=== PATIENT | male | born 1955 | race Caucasian/White ===

== ENCOUNTER 2017-02-25 22:06 | Emergency (ER) | payer MEDICARE, MEDICAID ==
[~2017-02-25] VITALS: Ht 198.1 cm; Wt 80.0 kg
[~2017-02-25 22:06] MED LIST: HYDR-519 PO
[2017-02-25 23:03] VITALS: BP 129/84
[2017-02-26] MEDS ORDERED: KETOROLAC 60MG/2ML VIAL IM ONE (00:45)
== END 2017-02-26 01:45 | disposition left against medical advice (07) ==
LOC: ER 22:06
DX: S52.022D Displaced fracture of olecranon process without intraarticular extension of left ulna, subsequent encounter for closed fracture with routine healing (principal); Y08.89XD Assault by other specified means, subsequent encounter; R03.0 Elevated blood-pressure reading, without diagnosis of hypertension; Z98.890 Other specified postprocedural states; Z96.659 Presence of unspecified artificial knee joint
CPT/HCPCS: 73070; 73110; 96372; 99284; J1885

== ENCOUNTER 2017-09-27 00:36 | Emergency (ER) | payer MEDICARE, MEDICAID ==
[~2017-09-27] VITALS: Ht 188 cm; Wt 73.0 kg
[2017-09-27] MEDS ORDERED: HYDROCODONE/ACETAMINOPHEN 5/325MG TABLET PO ONE (03:15)
[2017-09-27 06:00] VITALS: BP 137/81
== END 2017-09-27 07:11 | disposition home or self-care (01) ==
LOC: ER 00:36
DX: M25.562 Pain in left knee (principal); M54.9 Dorsalgia, unspecified; Z95.0 Presence of cardiac pacemaker
CPT/HCPCS: 72070; 72100; 73562; 99284

== ENCOUNTER 2017-10-08 19:12 | Emergency (ER) | payer MEDICARE, MEDICAID | END 2017-10-08 20:20 | disposition left against medical advice (07) | LOC: ER 19:12 | DX: M25.569 Pain in unspecified knee (principal); Z53.21 Procedure and treatment not carried out due to patient leaving prior to being seen by health care provider ==

== ENCOUNTER 2017-10-19 23:51 | Emergency (ER) | payer MEDICAID, MEDICARE ==
[~2017-10-19] VITALS: Ht 198.1 cm; Wt 90.0 kg
[2017-10-20] MEDS ORDERED: HYDROCODONE/ACETAMINOPHEN 5/325MG TABLET PO STA (01:02)
[2017-10-20] MEDS ORDERED: NITROGLYCERIN OINT 1GM/INCH UDPKT TD ONE (01:15)
[2017-10-20 01:17] VITALS: BP 126/74
[2017-10-20 01:21] LABS: BASOPHILS % 0.6 % (0.0-2.0); HEMATOCRIT. 34.3 % (42.0-52.0); HEMOGLOBIN. 11.5 g/dL (14.0-18.0); LYMPHOCYTES % 34.9 % (20.0-50.0); MEAN CORPUSCULAR HEMOGLOBIN 29.3 pg (28.0-32.0); MEAN CORPUSCULAR VOLUME 87.5 fL (80.0-94.0); MEAN PLATELET VOLUME 8.1 fl (7.4-10.4); NEUTROPHILS % 49.5 % (40.0-76.0); PLATELET 220 x1000/uL (130-400); RED BLOOD CELL COUNT 3.92 mill/uL (4.7-6.1); RED CELL DISTRIBUTION WIDTH 15.5 % (11.6-14.6)
[2017-10-20 01:35] LABS: CHLORIDE 111 mEq/L (98-107); TROPONIN I < 0.02 ng/mL (0.00-0.04)
== END 2017-10-20 03:11 | disposition home or self-care (01) ==
LOC: ER 23:51 → CANBEDREQ 10-20 03:43
DX: R07.9 Chest pain, unspecified (principal); G89.29 Other chronic pain; F17.200 Nicotine dependence, unspecified, uncomplicated; Z95.0 Presence of cardiac pacemaker; Z96.659 Presence of unspecified artificial knee joint
CPT/HCPCS: 36415; 71045; 80053; 83880; 84484; 85025; 85379; 93005; 99285

== ENCOUNTER 2017-11-07 15:41 | Emergency (ER) | payer MEDICARE ==
[~2017-11-07] VITALS: Ht 185.4 cm; Wt 70.0 kg
[2017-11-07 15:49] VITALS: BP 98/62
== END 2017-11-07 18:45 | disposition left against medical advice (07) ==
LOC: ER 15:55
DX: R07.9 Chest pain, unspecified (principal); Z53.21 Procedure and treatment not carried out due to patient leaving prior to being seen by health care provider

== ENCOUNTER 2018-12-21 21:39 | Emergency (ER) | payer MEDICARE, OTHER ==
[~2018-12-21] VITALS: Ht 190.5 cm; Wt 100.0 kg
[2018-12-21] MEDS ORDERED: ACETAMINOPHEN 325MG TABLET PO ONE (23:30)
[2018-12-21] MEDS ORDERED: NITROGLYCERIN OINT 1GM/INCH UDPKT TD ONE (23:30)
[2018-12-21 23:45] LABS: BASOPHILS % 0.8 % (0.0-2.0); EOSINOPHILS % 4.2 % (0.0-5.0); HEMATOCRIT. 37.1 % (42.0-52.0); HEMOGLOBIN. 12.6 g/dL (14.0-18.0); LYMPHOCYTES % 32.7 % (20.0-50.0); MEAN CORPUSCULAR HEMOGLOBIN 30.6 pg (28.0-32.0); MEAN CORPUSCULAR VOLUME 90.4 fL (80.0-94.0); MEAN PLATELET VOLUME 9.7 fl (7.4-10.4); MONOCYTES % 11.1 % (2.0-8.0); NEUTROPHILS % 51.2 % (40.0-76.0); PLATELET 226 x1000/uL (130-400); RED CELL DISTRIBUTION WIDTH 12.5 % (11.6-14.6)
[2018-12-21 23:53] LABS: CHLORIDE 111 mEq/L (98-107)
[2018-12-22 04:50] VITALS: BP 121/89
== END 2018-12-22 05:00 | disposition home or self-care (01) ==
LOC: ER 21:39
DX: R07.9 Chest pain, unspecified (principal)
CPT/HCPCS: 36415; 71045; 83880; 84484; 85379; 93005; 99284

== ENCOUNTER 2019-08-19 10:14 | Inpatient (IN) | payer MEDICARE, OTHER ==
[~2019-08-19] VITALS: Ht 198.1 cm; Wt 84.4 kg
[2019-08-19] MEDS ORDERED: MORPHINE SULFATE 4 MG/ML CPJ (NOT FOR IM USE) IV STA (10:53)
[2019-08-19] MEDS ORDERED: SODIUM CHLORIDE 0.9% 1,000 ML IV ONE (10:53)
[2019-08-19] MEDS ORDERED: ONDANSETRON HCL 4MG/2ML INJ IV STA (10:53)
[2019-08-19] MEDS ORDERED: NITROGLYCERIN 0.4MG TABLET SL SL PRN ×2 (11:00→15:30)
[2019-08-19 11:12] LABS: EOSINOPHILS % 6.6 % (0.0-5.0); HEMATOCRIT. 36.8 % (42.0-52.0); HEMOGLOBIN. 12.5 g/dL (14.0-18.0); LYMPHOCYTES % 30.2 % (20.0-50.0); MEAN CORPUSCULAR HEMOGLOBIN 30.7 pg (28.0-32.0); MEAN CORPUSCULAR VOLUME 90.2 fL (80.0-94.0); MEAN PLATELET VOLUME 8.4 fl (7.4-10.4); MONOCYTES % 8.4 % (2.0-8.0); NEUTROPHILS % 53.8 % (40.0-76.0); PLATELET 184 x1000/uL (130-400); RED BLOOD CELL COUNT 4.08 mill/uL (4.7-6.1); RED CELL DISTRIBUTION WIDTH 14.3 % (11.6-14.6)
[2019-08-19 11:18] LABS: CHLORIDE 109 mEq/L (98-107)
[2019-08-19 11:24] LABS: D-DIMER 0.52 mg/L FEU (<0.50); INR 1.1; PARTIAL THROMBOPLASTIN TIME 26.7 sec (23.4-31.0); PROTHROMBIN TIME 10.9 sec (9.6-11.0)
[2019-08-19] MEDS ORDERED: SODIUM CHLORIDE 0.9% 1000ML BAG (SEPSIS BOLUS) IV ONE (13:00)
[2019-08-19] MEDS ORDERED: LEVOFLOXACIN 750MG PREMIX 150 ML IV ONE (13:00)
[2019-08-19 13:11] LABS: CLARITY URINE CLEAR (CLEAR); COLOR URINE YELLOW (YELLOW); KETONES URINE NEGATIVE (NEGATIVE); LEUKOCYTE ESTERASE URINE NEGATIVE (NEGATIVE); NITRITE URINE NEGATIVE (NEGATIVE); OCCULT BLOOD URINE NEGATIVE (NEGATIVE); PH URINE 5.5 (4.5-8.0); PROTEIN URINE NEGATIVE (NEGATIVE); SPECIFIC GRAVITY URINE 1.013 (1.005-1.030); UROBILINOGEN URINE 0.2 E.U./dL (0.2-1.0)
[2019-08-19 13:39] LABS: *BARBITURATES SCREEN URINE NEGATIVE (NEGATIVE)
[2019-08-19 13:40] LABS: *BENZODIAZEPINES SCREEN URINE NEGATIVE (NEGATIVE); *COCAINE SCREEN URINE NEGATIVE (NEGATIVE); CANNABINOID URINE SCREEN NEGATIVE (NEGATIVE); METHADONE URINE SCREEN NEGATIVE (NEGATIVE); OPIATES URINE SCREEN PRESUMTIVE POSITIVE (NEGATIVE); PHENCYCLIDINE URINE SCREEN NEGATIVE (NEGATIVE)
[2019-08-19 13:41] LABS: *AMPHETAMINES SCREEN URINE NEGATIVE (NEGATIVE)
[2019-08-19] MEDS ORDERED: IOHEXOL-350 100 ML BOTTLE ONE (14:22)
[2019-08-19] MEDS ORDERED: ACETAMINOPHEN 325MG TABLET PO PRN (15:30)
[2019-08-19] MEDS ORDERED: GUAIFENESIN 200MG/10ML SUGAR FREE UDC PO PRN (15:30)
[2019-08-19] MEDS ORDERED: MAGNESIUM/ALUMINUM HYDROXIDE/SIMETHICONE 30ML UDC PO PRN (15:30)
[2019-08-19] MEDS ORDERED: ONDANSETRON HCL 4MG/2ML INJ IV PRN (15:30)
[2019-08-19] MEDS ORDERED: CLONIDINE 0.1MG TABLET PO PRN (15:30)
[2019-08-19] MEDS ORDERED: DOCUSATE SODIUM 100MG CAPSULE PO PRN (15:30)
[2019-08-19] MEDS ORDERED: IPRATROPIUM/ALBUTEROL 0.5-3(2.5)MG/3ML NEB NEB PRN (15:30)
[2019-08-19 16:00] VITALS: BP 134/86
[2019-08-19 16:35] VITALS: BP 134/86
[2019-08-19] MEDS ORDERED: BACL-141 PO (16:35)
[2019-08-19] MEDS: HYDROCODONE/ACETAMINOPHEN 5/325MG TABLET PO PRN (17:01)
[2019-08-19] MEDS: ENOXAPARIN 40MG/0.4ML SYR SUBCUT SCH (17:56)
[2019-08-19 20:00] VITALS: BP 116/60
[2019-08-19] MEDS: MORPHINE SULFATE 2 MG/ML CPJ (NOT FOR IM USE) IV PRN (20:35)
[2019-08-20] VITALS: BP 120/65
[2019-08-20 00:05] LABS: CREATINE KINASE 62 IU/L (39-308)
[2019-08-20 00:06] LABS: CREATINE KINASE MB FRACTION 2.3 ng/mL (0.5-3.6)
[2019-08-20] MEDS: MORPHINE SULFATE 2 MG/ML CPJ (NOT FOR IM USE) IV PRN ×4 (01:35→20:19)
[2019-08-20 04:00] VITALS: BP 123/79
[2019-08-20] MEDS: HYDROCODONE/ACETAMINOPHEN 5/325MG TABLET PO PRN ×3 (04:48→15:53)
[2019-08-20 06:01] LABS: BASOPHILS % 0.9 % (0.0-2.0); HEMATOCRIT. 37.4 % (42.0-52.0); HEMOGLOBIN. 12.8 g/dL (14.0-18.0); LYMPHOCYTES % 27.5 % (20.0-50.0); MEAN CORPUSCULAR HEMOGLOBIN 30.8 pg (28.0-32.0); MEAN CORPUSCULAR VOLUME 90.4 fL (80.0-94.0); NEUTROPHILS % 54.6 % (40.0-76.0); PLATELET 174 x1000/uL (130-400); RED BLOOD CELL COUNT 4.14 mill/uL (4.7-6.1); RED CELL DISTRIBUTION WIDTH 14.2 % (11.6-14.6)
[2019-08-20 06:09] LABS: CHLORIDE 110 mEq/L (98-107)
[2019-08-20 06:18] LABS: HDL CHOLESTEROL 45 mg/dL (40-59); LDL CHOLESTEROL 65 mg/dL (5-100)
[2019-08-20 06:21] LABS: CREATINE KINASE 57 IU/L (39-308)
[2019-08-20 06:24] LABS: CREATINE KINASE MB FRACTION 1.6 ng/mL (0.5-3.6)
[2019-08-20] MEDS ORDERED: REGADENOSON 0.4 MG/5 ML IV ONE ×2 (06:30→09:05)
[2019-08-20 08:00] VITALS: BP 115/81
[2019-08-20] MEDS ORDERED: INFLUENZA VIRUS VACCINE(AFLURIA) 0.5ML SYR IM ONE (08:00)
[2019-08-20] MEDS ORDERED: PNEUMOCOCCAL 23-VAL P-SAC VAC 0.5 ML IM ONE (08:00)
[2019-08-20] MEDS: AMLODIPINE 10MG TABLET PO SCH (10:13)
[2019-08-20] MEDS: ASPIRIN 81MG EC TABLET PO SCH (10:13)
[2019-08-20 12:00] VITALS: BP 114/79
[2019-08-20] MEDS ORDERED: LEVOFLOXACIN 500MG PREMIX 100 ML IV SCH (13:00)
[2019-08-20 16:00] VITALS: BP 127/61
[2019-08-20] MEDS: ENOXAPARIN 40MG/0.4ML SYR SUBCUT SCH (16:59)
[2019-08-20 20:00] VITALS: BP 121/64
[2019-08-21] VITALS: BP 115/65
[2019-08-21] MEDS: MORPHINE SULFATE 2 MG/ML CPJ (NOT FOR IM USE) IV PRN ×5 (00:41→22:46)
[2019-08-21] MEDS: HYDROCODONE/ACETAMINOPHEN 5/325MG TABLET PO PRN ×3 (03:38→20:15)
[2019-08-21 04:00] VITALS: BP 131/70
[2019-08-21 06:35] LABS: BASOPHILS % 0.9 % (0.0-2.0); EOSINOPHILS % 7.2 % (0.0-5.0); HEMOGLOBIN. 13.4 g/dL (14.0-18.0); LYMPHOCYTES % 30.5 % (20.0-50.0); MEAN CORPUSCULAR VOLUME 90.2 fL (80.0-94.0); MEAN PLATELET VOLUME 9.5 fl (7.4-10.4); NEUTROPHILS % 51.4 % (40.0-76.0); PLATELET 185 x1000/uL (130-400); RED BLOOD CELL COUNT 4.32 mill/uL (4.7-6.1); RED CELL DISTRIBUTION WIDTH 14.5 % (11.6-14.6)
[2019-08-21 06:55] LABS: CHLORIDE 107 mEq/L (98-107)
[2019-08-21 08:00] VITALS: BP 110/76
[2019-08-21] MEDS: AMLODIPINE 10MG TABLET PO SCH (08:10)
[2019-08-21] MEDS: ASPIRIN 81MG EC TABLET PO SCH (08:10)
[2019-08-21 12:00] VITALS: BP 108/74
[2019-08-21] MEDS ORDERED: LEVOFLOXACIN 500MG PREMIX 100 ML IV SCH (15:00)
[2019-08-21 16:00] VITALS: BP 91/52
[2019-08-21] MEDS: LEVOFLOXACIN 500MG PREMIX 100 ML IV SCH (17:24)
[2019-08-21] MEDS: ENOXAPARIN 40MG/0.4ML SYR SUBCUT SCH (17:24)
[2019-08-21 20:00] VITALS: BP 114/72
[2019-08-22] VITALS (7 sets, daily range): BP systolic 96–130; BP diastolic 52–77
[2019-08-22] MEDS: HYDROCODONE/ACETAMINOPHEN 5/325MG TABLET PO PRN (02:39)
[2019-08-22] MEDS: MORPHINE SULFATE 2 MG/ML CPJ (NOT FOR IM USE) IV PRN (03:43)
[2019-08-22] MEDS: ASPIRIN 81MG EC TABLET PO SCH (08:08)
[2019-08-22] MEDS: AMLODIPINE 10MG TABLET PO SCH (08:08)
[2019-08-22] MEDS: HYDROCODONE/ACETAMINOPHEN 10/325MG TABLET PO PRN ×2 (10:10→18:41)
[2019-08-22] MEDS: LEVOFLOXACIN 500MG PREMIX 100 ML IV SCH (14:37)
[2019-08-22] MEDS: ENOXAPARIN 40MG/0.4ML SYR SUBCUT SCH (17:18)
[2019-08-23] VITALS: BP 104/55
[2019-08-23] MEDS: HYDROCODONE/ACETAMINOPHEN 10/325MG TABLET PO PRN ×4 (01:14→22:45)
[2019-08-23 04:00] VITALS: BP 106/63
[2019-08-23 08:00] VITALS: BP 132/70
[2019-08-23] MEDS: AMLODIPINE 10MG TABLET PO SCH (10:45)
[2019-08-23] MEDS: ASPIRIN 81MG EC TABLET PO SCH (10:46)
[2019-08-23 12:00] VITALS: BP 114/69
[2019-08-23 16:00] VITALS: BP 116/57
[2019-08-23] MEDS: LEVOFLOXACIN 500MG PREMIX 100 ML IV SCH (16:10)
[2019-08-23] MEDS: ENOXAPARIN 40MG/0.4ML SYR SUBCUT SCH (18:31)
[2019-08-24 00:54] VITALS: BP 128/69
[2019-08-24] MEDS ORDERED: LEVOFLOXACIN 500MG TABLET PO SCH (11:00)
== END 2019-08-24 00:54 | DRG 205 ==
LOC: ER 10:14 → 7WST 13:37 → EDBEDREQTM 14:08 → EDBEDREQ 14:08 → ENRESERV 14:23 → 7WST 08-23 08:59
PROVIDERS: ADMIT Hospitalist; ATTEND Hospitalist
DX: M94.0 Chondrocostal junction syndrome [Tietze] (principal); J18.9 Pneumonia, unspecified organism; J96.00 Acute respiratory failure, unspecified whether with hypoxia or hypercapnia; J44.0 Chronic obstructive pulmonary disease with (acute) lower respiratory infection; C34.90 Malignant neoplasm of unspecified part of unspecified bronchus or lung; I50.30 Unspecified diastolic (congestive) heart failure; E44.1 Mild protein-calorie malnutrition; D63.8 Anemia in other chronic diseases classified elsewhere; E78.5 Hyperlipidemia, unspecified; F17.210 Nicotine dependence, cigarettes, uncomplicated; I25.10 Atherosclerotic heart disease of native coronary artery without angina pectoris; I49.5 Sick sinus syndrome; Z96.659 Presence of unspecified artificial knee joint; G89.29 Other chronic pain; F60.0 Paranoid personality disorder; Z60.2 Problems related to living alone; R07.89 Other chest pain; I11.0 Hypertensive heart disease with heart failure; I25.2 Old myocardial infarction; Z85.118 Personal history of other malignant neoplasm of bronchus and lung; Z95.0 Presence of cardiac pacemaker; Z82.49 Family history of ischemic heart disease and other diseases of the circulatory system; Z87.01 Personal history of pneumonia (recurrent); Z82.3 Family history of stroke; Z79.899 Other long term (current) drug therapy
CPT/HCPCS: 36415; 71045; 71275; 78452; 80048; 80061; 80305; 81003; 82550; 82553; 83605; 83880; 84484; 85379; 86850; 86900; 90686; 90732; 93005; 93017; 93306; 93970; 96365; 99285; A9500; J1650; J1956; J2270; J2405; J2785; J7030; Q9967

== ENCOUNTER 2019-10-20 10:36 | Emergency (ER) | payer MEDICARE, MEDICAID ==
[~2019-10-20] VITALS: Ht 198.1 cm; Wt 100.0 kg
[~2019-10-20 10:36] MED LIST changes: +BACL-141 PO
[2019-10-20] MEDS ORDERED: LIDOCAINE HCL/PF 1% 10 MG/ML 5ML VIAL IJ ONE (11:00)
[2019-10-20] MEDS ORDERED: TETANUS, DIPHTHERIA, PERTUSSIS VAC/PF 0.5ML (>7YR OLD) IM ONE (11:00)
[2019-10-20 11:28] LABS: BASOPHILS % 0.8 % (0.0-2.0); EOSINOPHILS % 2.4 % (0.0-5.0); HEMATOCRIT. 45.7 % (42.0-52.0); HEMOGLOBIN. 15.9 g/dL (14.0-18.0); LYMPHOCYTES % 33.9 % (20.0-50.0); MEAN CORPUSCULAR HEMOGLOBIN 31.3 pg (28.0-32.0); MEAN CORPUSCULAR VOLUME 90.1 fL (80.0-94.0); MEAN PLATELET VOLUME 8.4 fl (7.4-10.4); MONOCYTES % 7.9 % (2.0-8.0); PLATELET 182 x1000/uL (130-400); RED BLOOD CELL COUNT 5.07 mill/uL (4.7-6.1); RED CELL DISTRIBUTION WIDTH 13.4 % (11.6-14.6)
[2019-10-20 11:35] LABS: CHLORIDE 109 mEq/L (98-107)
[2019-10-20] MEDS ORDERED: OXYCODONE HCL/ACETAMINOPHEN 5/325MG TABLET PO ONE (12:15)
[2019-10-20 12:51] VITALS: BP 123/71
== END 2019-10-20 13:22 | disposition home or self-care (01) ==
LOC: ER 10:36
DX: S09.8XXA Other specified injuries of head, initial encounter (principal); S01.112A Laceration without foreign body of left eyelid and periocular area, initial encounter; S60.511A Abrasion of right hand, initial encounter; I25.10 Atherosclerotic heart disease of native coronary artery without angina pectoris; I25.2 Old myocardial infarction; Z85.9 Personal history of malignant neoplasm, unspecified; Z95.0 Presence of cardiac pacemaker; Y04.0XXA Assault by unarmed brawl or fight, initial encounter; Y93.89 Activity, other specified; Y92.89 Other specified places as the place of occurrence of the external cause
CPT/HCPCS: 12011; 36415; 70450; 70486; 71045; 80053; 83880; 84484; 85025; 90471; 90715; 93005; 99284; J3490

== ENCOUNTER 2020-08-18 18:24 | Emergency (ER) | payer MEDICARE, OTHER ==
[~2020-08-18] VITALS: Ht 182.9 cm; Wt 86.0 kg
[2020-08-18 18:34] VITALS: BP 147/86
== END 2020-08-18 19:18 | disposition left against medical advice (07) ==
LOC: ER 18:24
DX: Z53.21 Procedure and treatment not carried out due to patient leaving prior to being seen by health care provider (principal); I49.9 Cardiac arrhythmia, unspecified
CPT/HCPCS: 93005

== ENCOUNTER 2021-08-14 19:42 | Emergency (ER) | payer MEDICARE, OTHER ==
[~2021-08-14] VITALS: Ht 198.1 cm; Wt 91.0 kg
[2021-08-14 19:59] VITALS: BP 113/85
== END 2021-08-14 22:34 | disposition home or self-care (01) ==
LOC: ER 19:42
DX: K46.9 Unspecified abdominal hernia without obstruction or gangrene (principal); R10.9 Unspecified abdominal pain; Z53.21 Procedure and treatment not carried out due to patient leaving prior to being seen by health care provider

== ENCOUNTER 2021-08-25 11:39 | Emergency (ER) | payer MEDICARE, OTHER ==
[~2021-08-25] VITALS: Ht 198.1 cm; Wt 101.0 kg
[2021-08-25 12:36] LABS: BASOPHILS % 0.6 % (0.0-2.0); EOSINOPHILS % 1.9 % (0.0-5.0); HEMATOCRIT. 43.6 % (42.0-52.0); HEMOGLOBIN. 14.5 g/dL (14.0-18.0); LYMPHOCYTES % 15.1 % (20.0-50.0); MEAN CORPUSCULAR HEMOGLOBIN 32.3 pg (28.0-32.0); MEAN CORPUSCULAR VOLUME 97.2 fL (80.0-94.0); MONOCYTES % 8.8 % (2.0-8.0); NEUTROPHILS % 73.6 % (40.0-76.0); PLATELET 176 x1000/uL (130-400); RED BLOOD CELL COUNT 4.48 mill/uL (4.7-6.1); RED CELL DISTRIBUTION WIDTH 13.4 % (11.6-14.6)
[2021-08-25] MEDS: KETOROLAC 15MG/ML VIAL IV ONE ×2 (12:37→12:39)
[2021-08-25 12:39] VITALS: BP 148/86
[2021-08-25 12:43] LABS: CHLORIDE 109 mEq/L (98-107)
== END 2021-08-25 13:56 | disposition left against medical advice (07) ==
LOC: ER 11:39
DX: R10.31 Right lower quadrant pain (principal); I25.2 Old myocardial infarction; Z95.0 Presence of cardiac pacemaker; Z98.890 Other specified postprocedural states
CPT/HCPCS: 36415; 80053; 85025; 93005; 99284; J1885

== ENCOUNTER 2022-09-11 07:28 | Emergency (ER) | payer MEDICARE, MEDICAID ==
[~2022-09-11] VITALS: Ht 188 cm; Wt 95.0 kg
[2022-09-11 07:45] VITALS: BP 126/61
[2022-09-11] MEDS ORDERED: ASPIRIN 81MG TABLET PO ONE (08:45)
[2022-09-11 09:06] LABS: BASOPHILS % 1.1 % (0.0-2.0); EOSINOPHILS % 7.5 % (0.0-5.0); HEMATOCRIT. 42.1 % (42.0-52.0); HEMOGLOBIN. 14.5 g/dL (14.0-18.0); LYMPHOCYTES % 21.5 % (20.0-50.0); MEAN CORPUSCULAR HEMOGLOBIN 34.6 pg (28.0-32.0); MEAN CORPUSCULAR VOLUME 100.2 fL (80.0-94.0); MEAN PLATELET VOLUME 9.4 fl (7.4-10.4); MONOCYTES % 11.4 % (2.0-8.0); NEUTROPHILS % 58.5 % (40.0-76.0); PLATELET 206 x1000/uL (130-400); RED CELL DISTRIBUTION WIDTH 14.1 % (11.6-14.6)
[2022-09-11 09:24] LABS: CHLORIDE 112 mEq/L (98-107)
[2022-09-11] MEDS ORDERED: MORPHINE SULFATE 4 MG/ML CPJ (NOT FOR IM USE) IV ONE (11:00)
[2022-09-11] MEDS ORDERED: ONDANSETRON HCL 4MG/2ML INJ IV PRN (11:30)
[2022-09-11] MEDS ORDERED: KETOROLAC 15MG/ML VIAL IV PRN (11:30)
[2022-09-11] MEDS ORDERED: GUAIFENESIN 200MG/10ML SUGAR FREE UDC PO PRN (11:30)
[2022-09-11] MEDS ORDERED: CLONIDINE 0.1MG TABLET PO PRN (11:30)
[2022-09-11] MEDS ORDERED: MAGNESIUM/ALUMINUM HYDROXIDE/SIMETHICONE 30ML UDC PO PRN (11:30)
[2022-09-11] MEDS ORDERED: NA PHOS,M-B/NA PHOS,DI-BA ENEMA 118ML PR PRN (11:30)
[2022-09-11] MEDS ORDERED: NITROGLYCERIN 0.4MG TABLET SL SL PRN (11:30)
[2022-09-11] MEDS ORDERED: DOCUSATE SODIUM 100MG CAPSULE PO PRN (11:30)
[2022-09-11] MEDS ORDERED: ACETAMINOPHEN 325MG TABLET PO PRN ×2 (11:30)
[2022-09-11] MEDS ORDERED: IPRATROPIUM/ALBUTEROL 0.5-3(2.5)MG/3ML NEB NEB PRN (11:30)
[2022-09-11] MEDS ORDERED: FAMOTIDINE 20MG TABLET PO SCH (12:00)
[2022-09-11] MEDS ORDERED: ENOXAPARIN 40MG/0.4ML SYR SUBCUT SCH (14:00)
[2022-09-11] MEDS ORDERED: ZOLPIDEM TARTRATE 5MG TABLET PO PRN (21:00)
[2022-09-12] MEDS ORDERED: ASPIRIN 325MG EC TABLET PO SCH (09:00)
== END 2022-09-11 12:14 | disposition left against medical advice (07) ==
LOC: ER 07:28 → EDBEDREQ 11:07 → EDBEDREQTM 11:07 → CANRESERV 12:02 → ENRESERV 12:02 → ER 12:14 → CANBEDREQ 09-13 00:42
DX: R07.89 Other chest pain (principal); I51.9 Heart disease, unspecified; I25.2 Old myocardial infarction; Z95.0 Presence of cardiac pacemaker
CPT/HCPCS: 36415; 71045; 80053; 83880; 84484; 85025; 93005; 99285

== ENCOUNTER 2022-09-11 19:00 | Emergency (ER) | payer MEDICARE, MEDICAID | END 2022-09-11 21:22 | disposition left against medical advice (07) | LOC: ER 19:00 | DX: Z53.21 Procedure and treatment not carried out due to patient leaving prior to being seen by health care provider (principal) ==

== ENCOUNTER 2022-09-20 13:04 | Emergency (ER) | payer MEDICARE, MEDICAID ==
[~2022-09-20] VITALS: Ht 190.5 cm; Wt 93.0 kg
[2022-09-20 13:09] VITALS: BP 125/55
[2022-09-20] MEDS ORDERED: ASPIRIN 81MG TABLET PO ONE (13:30)
[2022-09-20 15:17] LABS: CHLORIDE 106 mEq/L (98-107)
[2022-09-20 15:18] LABS: BASOPHILS % 0.9 % (0.0-2.0); EOSINOPHILS % 3.5 % (0.0-5.0); HEMATOCRIT. 44.1 % (42.0-52.0); HEMOGLOBIN. 14.9 g/dL (14.0-18.0); LYMPHOCYTES % 21.3 % (20.0-50.0); MEAN CORPUSCULAR HEMOGLOBIN 33.9 pg (28.0-32.0); MEAN CORPUSCULAR VOLUME 100.4 fL (80.0-94.0); MEAN PLATELET VOLUME 9.1 fl (7.4-10.4); MONOCYTES % 7.5 % (2.0-8.0); NEUTROPHILS % 66.8 % (40.0-76.0); PLATELET 188 x1000/uL (130-400); RED BLOOD CELL COUNT 4.39 mill/uL (4.7-6.1); RED CELL DISTRIBUTION WIDTH 13.8 % (11.6-14.6)
[2022-09-20 15:19] LABS: PROTHROMBIN TIME 10.6 sec (9.6-11.0)
[2022-09-20] MEDS ORDERED: TETANUS AND DIPHTHERIA TOX/PF 0.5ML SYR (ADULT) IM ONE (17:30)
== END 2022-09-20 19:51 | disposition home or self-care (01) ==
LOC: ER 13:04
DX: R07.89 Other chest pain (principal); I25.2 Old myocardial infarction; Z98.890 Other specified postprocedural states; Z86.73 Personal history of transient ischemic attack (TIA), and cerebral infarction without residual deficits
CPT/HCPCS: 36415; 71045; 80053; 82962; 83880; 84484; 85025; 90714; 93005; 99285

== ENCOUNTER 2023-10-11 02:41 | Emergency (ER) | payer MEDICARE, MEDICAID ==
[~2023-10-11] VITALS: Ht 198.1 cm; Wt 95.0 kg
[~2023-10-11 02:41] MED LIST changes: +ASPI-1497 MT; +ATOR20TA65 PO; +CLOP75TA33 PO; +METO-385 PO
[2023-10-11 02:51] VITALS: BP 121/71; PULSE 72; RESP 22; TEMP 98.2; O2SAT 99
== END 2023-10-11 12:36 | disposition left against medical advice (07) ==
LOC: ER 02:41
DX: R07.89 Other chest pain (principal); Z53.21 Procedure and treatment not carried out due to patient leaving prior to being seen by health care provider
CPT/HCPCS: 71046; 93005; 99281; 99283

== ENCOUNTER 2024-03-03 03:33 | Emergency (ER) | payer MEDICARE, MEDICAID ==
[~2024-03-03] VITALS: Ht 198.1 cm; Wt 100.0 kg
[~2024-03-03 03:33] MED LIST changes: +APIX5TAB PO; +ATOR40TA70 PO; +METO-396 PO
[2024-03-03 03:58] VITALS: BP 101/80; PULSE 80; RESP 20; TEMP 97.9; O2SAT 99
== END 2024-03-03 07:43 | disposition left against medical advice (07) ==
LOC: ER 03:33
DX: M79.604 Pain in right leg (principal); Z53.21 Procedure and treatment not carried out due to patient leaving prior to being seen by health care provider

== ENCOUNTER 2025-07-06 01:21 | Inpatient (IN) | payer MEDICARE, MEDICAID ==
[~2025-07-06] VITALS: Ht 188 cm; Wt 131.1 kg
[~2025-07-06 01:21] MED LIST changes: -ATOR20TA65 PO; -METO-385 PO
[2025-07-06 01:27] VITALS: O2SAT 99
[2025-07-06 02:31] LABS: BASOPHILS % 1.2 % (0.0-2.0); EOSINOPHILS % 8.1 % (0.0-5.0); HEMATOCRIT. 38.6 % (42.0-52.0); HEMOGLOBIN. 13.1 g/dL (14.0-18.0); LYMPHOCYTES % 27.8 % (20.0-50.0); MEAN PLATELET VOLUME 9.9 fl (7.4-10.4); MONOCYTES % 11.3 % (2.0-8.0); NEUTROPHILS % 51.6 % (40.0-76.0); PLATELET 201 x1000/uL (130-400); RED BLOOD CELL COUNT 4.27 mill/uL (4.7-6.1); RED CELL DISTRIBUTION WIDTH 15.2 % (11.6-14.6)
[2025-07-06 02:54] LABS: CREATININE 1.4 mg/dL (0.6-1.3); UREA NITROGEN BLOOD 25 mg/dL (9-23)
[2025-07-06 02:55] LABS: TROPONIN I HIGH SENSITIVITY 8 ng/L (3.0-53)
[2025-07-06] MEDS: NITROGLYCERIN 0.4MG TABLET SL SL ONE (04:20)
[2025-07-06] MEDS: ASPIRIN 325MG EC TABLET PO ONE (04:20)
[2025-07-06 04:51] VITALS: O2SAT 99
[2025-07-06] MEDS ORDERED: IPRATROPIUM/ALBUTEROL 0.5-3(2.5)MG/3ML NEB HHN PRN (05:45)
[2025-07-06] MEDS ORDERED: ONDANSETRON HCL 4MG/2ML INJ IV PRN (05:45)
[2025-07-06] MEDS ORDERED: NITROGLYCERIN 0.4MG TABLET SL SL PRN ×2 (05:45→10:30)
[2025-07-06] MEDS ORDERED: GUAIFENESIN 200MG/10ML SUGAR FREE UDC PO PRN (05:45)
[2025-07-06] MEDS ORDERED: MAGNESIUM/ALUMINUM HYDROXIDE/SIMETHICONE 30ML UDC PO PRN (05:45)
[2025-07-06] MEDS ORDERED: ACETAMINOPHEN 325MG TABLET PO PRN ×2 (05:45)
[2025-07-06] MEDS ORDERED: DOCUSATE SODIUM 100MG CAPSULE PO PRN (05:45)
[2025-07-06] MEDS ORDERED: LORAZEPAM 1MG TABLET PO PRN (06:15)
[2025-07-06] MEDS: LACTATED RINGERS 1,000 ML IV SCH (06:15)
[2025-07-06 07:38] LABS: *AMPHETAMINES SCREEN URINE NEGATIVE (NEGATIVE)
[2025-07-06 07:39] LABS: *BARBITURATES SCREEN URINE NEGATIVE (NEGATIVE); *BENZODIAZEPINES SCREEN URINE NEGATIVE (NEGATIVE); *COCAINE SCREEN URINE NEGATIVE (NEGATIVE); CANNABINOID URINE SCREEN PRESUMPTIVE POSITIVE (NEGATIVE); ECSTASY MDMA SCREEN URINE NEGATIVE (NEGATIVE); METHADONE URINE SCREEN NEGATIVE (NEGATIVE); OPIATES URINE SCREEN PRESUMPTIVE POSITIVE (NEGATIVE); PHENCYCLIDINE URINE SCREEN NEGATIVE (NEGATIVE)
[2025-07-06] MEDS: ASPIRIN 81MG TABLET PO SCH (10:15)
[2025-07-06] MEDS: THIAMINE HCL 100MG TABLET PO SCH (10:15)
[2025-07-06] MEDS: METOPROLOL SUCCINATE 50MG ER TABLET PO SCH (10:16)
[2025-07-06] MEDS: FOLIC ACID 1MG TABLET PO SCH (10:16)
[2025-07-06] MEDS: APIXABAN 5 MG TABLET PO SCH (10:17)
[2025-07-06] MEDS ORDERED: IBUPROFEN 400MG TABLET PO SCH (11:00)
[2025-07-06 11:55] VITALS: BP 140/65; PULSE 65; RESP 18; TEMP 36.418; TEMP 36.4180
[2025-07-06 11:57] LABS: CLARITY URINE CLEAR (CLEAR); COLOR URINE YELLOW (YELLOW); GLUCOSE URINE NEGATIVE (NEGATIVE); KETONES URINE NEGATIVE (NEGATIVE); LEUKOCYTE ESTERASE URINE NEGATIVE (NEGATIVE); NITRITE URINE NEGATIVE (NEGATIVE); OCCULT BLOOD URINE NEGATIVE (NEGATIVE); PH URINE 7.0 (4.5-8.0); PROTEIN URINE NEGATIVE (NEGATIVE); SPECIFIC GRAVITY URINE 1.007 (1.005-1.030); UROBILINOGEN URINE 1.0 E.U./dL (0.2-1.0)
[2025-07-06 12:41] LABS: *AMPHETAMINES SCREEN URINE NEGATIVE (NEGATIVE); *BARBITURATES SCREEN URINE NEGATIVE (NEGATIVE); *BENZODIAZEPINES SCREEN URINE NEGATIVE (NEGATIVE); *COCAINE SCREEN URINE NEGATIVE (NEGATIVE); METHADONE URINE SCREEN NEGATIVE (NEGATIVE)
[2025-07-06 12:42] LABS: CANNABINOID URINE SCREEN PRESUMPTIVE POSITIVE (NEGATIVE); ECSTASY MDMA SCREEN URINE NEGATIVE (NEGATIVE); OPIATES URINE SCREEN PRESUMPTIVE POSITIVE (NEGATIVE); PHENCYCLIDINE URINE SCREEN NEGATIVE (NEGATIVE)
[2025-07-06] MEDS ORDERED: ATORVASTATIN CALCIUM 40MG TABLET PO SCH (21:00)
== END 2025-07-06 12:15 | disposition left against medical advice (07) | DRG 311 ==
LOC: ER 01:21 → 6WST 04:16 → EDBEDREQ 04:17 → EDBEDREQTM 04:17 → ENRESERV 05:45
PROVIDERS: ADMIT Internal Medicine; ATTEND Internal Medicine
DX: I20.0 Unstable angina (principal); N17.9 Acute kidney failure, unspecified; E78.5 Hyperlipidemia, unspecified; F11.10 Opioid abuse, uncomplicated; I10 Essential (primary) hypertension; Z96.652 Presence of left artificial knee joint; F17.200 Nicotine dependence, unspecified, uncomplicated; Z53.29 Procedure and treatment not carried out because of patient's decision for other reasons; I25.2 Old myocardial infarction; Z79.01 Long term (current) use of anticoagulants; Z79.899 Other long term (current) drug therapy; Z86.73 Personal history of transient ischemic attack (TIA), and cerebral infarction without residual deficits; Z95.0 Presence of cardiac pacemaker
CPT/HCPCS: 36415; 71045; 80048; 80305; 80320; 81003; 83036; 83880; 84484; 85025; 93005; 93970; 99285; A4606; G0480